=== PATIENT | female | born 1980 | race African-American/Black ===

== ENCOUNTER 2017-12-08 10:41 | Emergency (ER) | payer OTHER ==
[~2017-12-08] VITALS: Ht 172.7 cm; Wt 159.5 kg
[~2017-12-08 10:41] MED LIST: PENI500T PO
[2017-12-08 10:59] VITALS: BP 130/79; PULSE 94; RESP 20; TEMP 98.4; O2SAT 98
--- NOTE | 2017-12-08 11:38 | RADRPT ---
EXAM DATE/TIME: 12/08/2017 11:24 [place] COMPARISON: No previous studies available for comparison. INDICATIONS : Right foot heel pain, no known injury. MEDICAL HISTORY : None. SURGICAL HISTORY : None. ENCOUNTER: Initial ACUITY: 1 month PAIN SCORE: 5/10 LOCATION: Right heel FINDINGS: Three view examination of the right foot demonstrates soft tissue swelling without dislocation, or fr acture. The tarsal bones appear intact. The interphalangeal and metatarsophalangeal joints are int act. The calcaneus is intact. Bony mineralization is normal. Degenerative changes within the midfoo t and hindfoot. Moderate size plantar calcaneal spur. CONCLUSION: Plantar calcaneal spur. No fracture. Dhaval York MD on December 08, 2017 at 11:35 Board Certified Radiologist. This report was verified electronically.
--- NOTE | 2017-12-08 11:40 | PD ---
HPI Chief Complaint: Musculoskeletal Complaint Time Seen by Provider: 11:16 Travel History International Travel<30 days: No Contact w/Intl Traveler<30days: No Traveled to known affect area: No History of Present Illness HPI Patient comes in complaining of right heel pain ongoing for several months. Patient states pain is getting progressively worse. Pain is worse with walking. Patient denies anything making the pain better. Denies doing anything for the pain. Denies any known injury. Denies being evaluated for this previously. Denies any fevers, IV drug use, , numbness or tingling, trauma, or radiation of the pain. 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) Immunizations Current: Yes Tetanus Vaccination: Unknown ?: Unknown LMP: 12 20 17 : 0 Ovarian Cysts: Yes (surgery) Social History Alcohol Use: Yes (RARE) Tobacco Use: No Substance Use: No Allergies-Medications (Allergen,Severity, Reaction): Coded Allergies: No Known Allergies (Verified Adverse Reaction, Unknown, 12/08/17) Reported Meds & Prescriptions Reported Meds & Active Scripts Active Naprosyn (Naproxen) 500 Mg Tab 500 Mg PO Q12HR PRN Review of Systems Except as stated in HPI: all other systems reviewed are Neg Physical Exam Narrative GENERAL: Well-developed, overly nourished, in no acute distress, and non-ill appearing. SKIN: Focused skin assessment warm and dry. HEAD: Atraumatic. Normocephalic. EYES: Pupils equal and round. EOMI. No scleral icterus. No injection or drainage. ENT: No nasal bleeding or discharge. Mucous membranes pink and moist. NECK: Trachea midline. Supple. No nuclear rigidity. CARDIOVASCULAR: Dorsal pulses 2+, intact, and equal bilaterally. Capillary refill less than 2 seconds. RESPIRATORY: No accessory muscle use. No respiratory distress. MUSCULOSKELETAL: No obvious deformities. No clubbing. No cyanosis. No edema. Full range of motion. Ankle: Neagative anterior draw and Souza test. Negative Yuri's sign. No laxity noted with passive inversion and eversion of BL ankles. Negative squeeze test. Pulses equal BL distal to injury. Capillary refill less than 2 seconds distal to injury and equal BL. Sensation equal BL 1st web space. FROM of toes distal to injury and equal BL. NV intact distal to injury and equal BL. Dorsal pulses equal BL. There is no crepitus. Patient reports tenderness palpation plantar surface of right calcaneus. NEUROLOGICAL: Awake and alert. No obvious cranial nerve deficits. Motor grossly within normal limits. Normal speech. PSYCHIATRIC: Appropriate mood and affect; insight and judgment normal. Data Data Last Documented VS Vital Signs Date Time Temp Pulse Resp B/P (MAP) Pulse Ox O2 Delivery O2 Flow Rate FiO2 12/08/17 10:59 98.4 94 20 130/79 (96) 98 Orders Orders Foot, Complete ([id number]) (12/08/17 ) Ed Discharge Order (12/08/17 11:42) MDM Medical Decision Making Medical Screen Exam Complete: Yes Emergency Medical Condition: Yes Interpretation(s) Last Impressions Foot X-Ray 12/08/17 0000 Signed Impressions: Service Date/Time: Friday, December 08, 2017 11:24 - CONCLUSION: Plantar calcaneal spur. No fracture. Dhaval York MD Differential Diagnosis Fracture, sprain, contusion, plantar fasciitis, heel spur, foreign body Narrative Course Patient in no obvious distress upon re-evaluation. All pertinentRadiology result (s) discussed with patient. Patient was asked if they wanted to speak to my attending, which the patient did not wish to do at this time. Any questions/ concerns in reference to patient diagnosis/condition discussed and clarified prior to patient's discharge. Reinforced sheer importance of close follow up with patient's primary physician or primary care clinic and/or patient access director. Instructed patient to return to ED immediately, if symptoms return/worsen. Patient showed understanding of above instructions. Further instructions and recommendations were detailed in discharge paperwork. Patient ambulated without difficulty out of ED at discharge. Diagnosis Primary Impression: Heel spur Qualified Codes: M77.31 - Calcaneal spur, right foot Referrals: Bucky Gee MD Patient Instructions: General Instructions, Heel Spur (ED) Additional Instructions: Follow-up with patient access director in 3-5 days for re-evaluation. Take all medication as prescribed. Return to the emergency department if symptoms get worse. Med/Other Pt SpecificInfo: Prescription(s) given Scripts Naproxen (Naprosyn) 500 Mg Tab 500 MG PO Q12HR Y for PAIN SCALE 1 TO 10, #14 TAB 0 Refills Prov: Behzad Medrano MD 12/08/17 Disposition: 01 DISCHARGE HOME Condition: Stable Parish Mendez Dec 08, 2017 11:40
[2017-12-08] MEDS ORDERED: NAPR500 PO (11:41)
== END 2017-12-08 11:50 | disposition home or self-care (01) ==
LOC: PHEFT 10:41
DX: M77.31 Calcaneal spur, right foot (principal)
CPT/HCPCS: 73630; 99283

== ENCOUNTER 2018-03-31 15:38 | Emergency (ER) | payer OTHER ==
[~2018-03-31] VITALS: Ht 172.7 cm; Wt 160.7 kg
[~2018-03-31 15:38] MED LIST changes: +NAPR500 PO; -PENI500T PO
[2018-03-31 15:45] VITALS: BP 158/88; PULSE 94; RESP 16; TEMP 99.9; O2SAT 99
[2018-03-31] MEDS ORDERED: NAPR500T2 PO (16:21)
--- NOTE | 2018-03-31 16:22 | PD ---
HPI Chief Complaint: Numbness/Tingling Time Seen by Provider: 16:05 Travel History International Travel<30 days: No Contact w/Intl Traveler<30days: No Traveled to known affect area: No History of Present Illness HPI 37-year-old female here with intermittent pins and needles of the right upper extremity primarily the hand ongoing for 2 months. Symptoms are alleviated by repositioning the arm. Denies any injury or trauma. No headache, visual changes, neck pain, or weakness of the extremities. Symptom severity is mild. No other symptoms. 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) Immunizations Current: Yes Tetanus Vaccination: Unknown ?: Not : 0 Ovarian Cysts: Yes (surgery) Social History Alcohol Use: Yes (RARE) Tobacco Use: No Substance Use: No Allergies-Medications (Allergen,Severity, Reaction): Coded Allergies: No Known Allergies (Verified Adverse Reaction, Unknown, 03/31/18) Reported Meds & Prescriptions Reported Meds & Active Scripts Active Naproxen 500 Mg Tab 500 Mg PO BID Review of Systems Except as stated in HPI: all other systems reviewed are Neg General / Constitutional: No: Fever Eyes: No: Visual changes HENT: No: Headaches Cardiovascular: No: Chest Pain or Discomfort Respiratory: No: Shortness of Breath Gastrointestinal: No: Abdominal Pain Genitourinary: No: Dysuria Musculoskeletal: No: Pain Skin: No Rash Neurologic: No: Weakness Physical Exam Narrative GENERAL: Alert and well appearing 37-year-old female. SKIN: Warm and dry. HEAD: Normocephalic. EYES: No scleral icterus. Pupils equal, round, reactive to light. EOMs intact. No injection or drainage. NECK: Supple, trachea midline. No cervical midline tenderness. Freely moves the neck. CARDIOVASCULAR: Regular rate and rhythm. No murmur RESPIRATORY: Breath sounds equal bilaterally. No accessory muscle use. GASTROINTESTINAL: Abdomen soft, non-tender, nondistended. MUSCULOSKELETAL: No cyanosis, or edema. No bony tenderness. Patient points to the third fourth and fifth digit and dorsal aspect of the hand as the site of the neuropathy. She can flex and extend all fingers. Normal sensation with sharp/dull discrimination. Brisk cap refill. Equal hand grasp. BACK: Nontender without obvious deformity. No CVA tenderness. NEUROLOGICAL: Awake and alert. No cranial nerve deficits. Motor and sensory grossly within normal limits. Five out of 5 muscle strength in all muscle groups. Normal speech. Data Data Last Documented VS Vital Signs Date Time Temp Pulse Resp B/P (MAP) Pulse Ox O2 Delivery O2 Flow Rate FiO2 03/31/18 15:59 16 99 Room Air 03/31/18 15:45 99.9 94 158/88 (111) MDM Medical Decision Making Medical Screen Exam Complete: Yes Emergency Medical Condition: Yes Differential Diagnosis Radiculopathy, carpal tunnel, other Narrative Course 37-year-old female here with intermittent pins and needles of the right upper extremity primarily the hand ongoing for 2 months. She has a normal neurologic exam. Symptoms are alleviated by repositioning the arm. Extremity is neurovascularly intact. no cervical midline tenderness. Normal strength in upper extremities. Diagnosis Primary Impression: Radiculopathy Qualified Codes: M54.10 - Radiculopathy, site unspecified Referrals: [facility] Physician Additional Instructions: Medication as directed. Call to establish with primary doctor Return if he develop new or worsening symptoms Scripts Naproxen (Naproxen) 500 Mg Tab 500 MG PO BID, #28 TAB 0 Refills Prov: Veronica Hays 03/31/18 Disposition: 01 DISCHARGE HOME Condition: Stable Veronica Hays March 31, 2018 16:22
== END 2018-03-31 16:29 | disposition home or self-care (01) ==
LOC: PHED 15:38 → PHEFT 16:29
DX: M54.10 Radiculopathy, site unspecified (principal)
CPT/HCPCS: 99283

== ENCOUNTER 2018-05-24 07:09 | Emergency (ER) | payer OTHER ==
[~2018-05-24] VITALS: Ht 172.7 cm; Wt 162.8 kg
[~2018-05-24 07:09] MED LIST changes: -NAPR500 PO; +NAPR500T2 PO
[2018-05-24 07:13] VITALS: BP 157/96; PULSE 80; RESP 16; TEMP 99.8; O2SAT 97
--- NOTE | 2018-05-24 07:45 | RADRPT ---
EXAM DATE: 05/24/2018 7:33 AM EDT AGE/SEX: 37 years / Female INDICATIONS: Right medial knee pain post fall down stairs.. CLINICAL DATA: This is the patient's initial encounter. Patient reports that signs and symptoms have been present for 1 day and indicates a pain score of 8/10. MEDICAL/SURGICAL HISTORY: . Ovarian cyst. . Removal of ovarian cyst. COMPARISON: No prior exams available for comparison. FINDINGS: Bony structures are intact and in normal alignment. Joints are intact without dislocation or signifi cant arthropathy. Osseous density is normal. Soft tissues are unremarkable. No radiopaque foreign bodies seen. CONCLUSION: 1. No acute fracture or dislocation. Electronically signed by: Tavares Haque MD 05/24/2018 7:43 AM EDT
--- NOTE | 2018-05-24 07:46 | PD ---
HPI . Knee injury Chief Complaint: Injury Time Seen by Provider: 07:16 Travel History International Travel<30 days: No Contact w/Intl Traveler<30days: No Traveled to known affect area: No History of Present Illness HPI Patient presents with chief complaint of right knee injury. The injury occurred just prior to arrival. She states that she was walking down some steps. Her sock was twisted on her foot and it tripped her up causing her to fall down approximately 5 steps. She states that her knee was twisted and that her lower leg was externally rotated in comparison to her knee. She comes in complaining with pain to the medial aspect of the right knee. She rates the pain at 8/10. Pain has been improved with Tylenol and ice. 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 SKIN: Warm and dry. Normal color and turgor. HEAD: Normocephalic/atraumatic. EYES: Pupils are equal. Extraocular movements are intact. NECK: Normal range of motion. Supple. CARDIOVASCULAR: Regular rate and rhythm. RESPIRATORY: Nonlabored respirations. Normal sats. MUSCULOSKELETAL: Right knee has no gross deformity. It is stable. There is no bruising, abrasion or swelling. Tender over the medial collateral ligament. NEUROLOGICAL: A and O 3. Nonfocal. PSYCHIATRIC: Appropriate mood and affect. Data Data Last Documented VS Vital Signs Date Time Temp Pulse Resp B/P (MAP) Pulse Ox O2 Delivery O2 Flow Rate FiO2 05/24/18 07:13 99.8 80 16 157/96 (116) 97 Orders Orders Knee, Complete (4vws) (05/24/18 07:15) [facility] Medical Decision Making Medical Screen Exam Complete: Yes Emergency Medical Condition: Yes Differential Diagnosis Differential diagnosis of extremity trauma includes but is not limited to fracture, sprain or strain, dislocation, contusion Narrative Course Patient presents for evaluation of a right knee injury. She has twisted her knee and is tender over the right medial collateral ligament. The knee is stable. X-ray is pending. Last Impressions Knee X-Ray 05/24/18 0715 Signed Impressions: CONCLUSION: 1. No acute fracture or dislocation. The x-ray was independently reviewed by me. The patient's knee will be treated with a roll of cotton, Elton wrap and knee immobilizer. She will be given crutches to aid in ambulation. She will be given a prescription for Ultram to take as needed for pain. She will be referred to orthopedic surgery for further evaluation and treatment. [employer] has been queried and reviewed. Diagnosis Primary Impression: Right knee sprain Qualified Codes: S83.411A - Sprain of medial collateral ligament of right knee , initial encounter Referrals: Rajiv Martinez MD Orthopaedic Surgeon Patient Instructions: General Instructions, Knee Sprain (DC) Med/Other Pt SpecificInfo: Prescription(s) given Scripts Tramadol (Ultram) 50 Mg Tab 50 MG PO Q4H Y for PAIN, #12 TAB 0 Refills Prov: Minnie Meehan MD 05/24/18 Disposition: 01 DISCHARGE HOME Condition: Stable Minnie Meehan MD May 24, 2018 07:46
[2018-05-24] MEDS ORDERED: TRAM50 PO (07:49)
[2018-05-24] MEDS ORDERED: traMADol HCL 50 MG TAB PO ONE (08:00)
== END 2018-05-24 07:59 | disposition home or self-care (01) ==
LOC: PHED 07:09
DX: S83.411A Sprain of medial collateral ligament of right knee, initial encounter (principal); W10.9XXA Fall (on) (from) unspecified stairs and steps, initial encounter; Y93.01 Activity, walking, marching and hiking
CPT/HCPCS: 73564; 99283; E0113; L1830